=== PATIENT | female | born 1950 | race Caucasian/White ===

== ENCOUNTER 2018-12-03 11:47 | Outpatient (CLI) | payer MEDICARE, BC ==
--- NOTE | 2018-12-03 13:25 | MMO ---
Bilateral MAMMO Bilat Screen [facility]. CLINICAL HISTORY: Patient is 68 years old and is seen for screening. The patient has no family history of breast cancer. The patient has no personal history of cancer. The patient has a history of left Ultrasound Guided Core Biopsy in July, - benign and left Lumpectomy in 1986 - benign. VIEWS: The views performed were: bilateral craniocaudal with tomosynthesis and bilateral mediolateral oblique with tomosynthesis. FILMS COMPARED: The present examination has been compared to prior imaging studies performed at [facility] on 06/22/2016, 06/28/2016 and 01/23/2017. MAMMOGRAM FINDINGS: There are scattered fibroglandular densities. There is a stable biopsy clip seen in the left breast. There are no suspicious masses, suspicious calcifications, or new areas of architectural distortion. IMPRESSION: THERE IS NO MAMMOGRAPHIC EVIDENCE OF MALIGNANCY. A ROUTINE FOLLOW-UP MAMMOGRAM IN 1 YEAR IS RECOMMENDED. THE RESULTS OF THIS EXAM WERE SENT TO THE PATIENT. ACR BI-RADS Category 2 - Benign finding MAMMOGRAPHY NOTE: 1. A negative mammogram report should not delay a biopsy if a dominant of clinically suspicious mass is present. 2. Approximately 10% to 15% of breast cancers are not detected by mammography. 3. Adenosis and dense breasts may obscure an underlying neoplasm. Reported by: SHANIA BRIONES MD Electonically Signed: [id number]
== END 2018-12-03 11:48 | disposition home or self-care (01) ==
LOC: BICMAMMO 11:47
PROVIDERS: ATTEND Family Medicine
DX: Z12.31 Encounter for screening mammogram for malignant neoplasm of breast (principal)
CPT/HCPCS: 77063; 77067

== ENCOUNTER 2019-01-31 12:36 | Outpatient (CLI) | payer MEDICARE, BC ==
--- NOTE | 2019-01-31 14:05 | MRI ---
MR CERVICAL SPINE WITHOUT CONTRAST INDICATION: Neck pain TECHNIQUE: Multiplanar multisequence MR images were obtained of the cervical spine without contrast. COMPARISON: None FINDINGS: Posterior fossa: Within normal limits. Bone marrow signal intensity: Normal Spinal alignment: Normal. Craniocervical junction: Normal appearing. Prevertebral and perivertebral soft tissues: Visualized soft tissues appear within normal limits. Vertebral levels: C2-C3: There is moderate bilateral facet joint degenerative change. There is no appreciable central c anal or neural foraminal narrowing. C3-4: There is uncovertebral hypertrophy and facet joint degenerative change inducing severe left and moderate right neural foraminal narrowing. C4-5: There is a broad-based disc bulge, uncovertebral hypertrophy and facet joint degenerative hooper ge inducing moderate to severe bilateral neural foraminal narrowing. C5-C6: There is a broad-based disc osteophyte complex with uncovertebral hypertrophy facet joint dege nerative change inducing severe bilateral neural foraminal narrowing. C6-C7:, There is a broad-based disc bulge with uncovertebral hypertrophy. This is greater on the righ t. There is severe right neural foraminal narrowing. C7-T1: No appreciable central canal or neuroforaminal narrowing. IMPRESSION: 1. Severe multilevel spondylosis of the cervical spine. 2. Severe left and moderate right neural foraminal narrowing at C3-4. 3. Moderate to severe bilateral neural foraminal narrowing at C4-5. 4. Severe bilateral neural foraminal narrowing at C5-6. 5. Severe right neural foraminal narrowing at C6-7.
--- NOTE | 2019-01-31 14:56 | MRI ---
MRI THORACIC SPINE WITHOUT CONTRAST: HISTORY: Fine motor skill loss. Chronic back pain. COMPARISON: None. TECHNIQUE: MRI thoracic spine is performed without intravenous gadolinium administration. Multi sequential, mult iplanar imaging is performed. FINDINGS: Appropriate T1 marrow signal intensity of the thoracic vertebrae. Thoracic spine vertebral body heigh t is maintained. There is no fracture. No significant STIR hyperintensity to suggest vertebral body edema or ligamentous injury. Visualized mediastinum is unremarkable. Dependent atelectatic changes of the lung parenchyma. Visual ized solid organs are unremarkable. Conus medullaris terminates at the upper aspect of L1. The thoracic cord has a normal size and signal intensity. No cord malacia. No cord expansion. T4-T5: Minimal central disc bulge. No significant central canal stenosis. T5-T6: Minimal disc bulge without significant central canal stenosis. T6-T7: Central disc protrusion does make contact upon the thecal sac. There does appear to be some ma ss effect and deformity of the thoracic cord. Mild to moderate central canal stenosis. The neural foramina are patent throughout the thoracic spine IMPRESSION: Degenerative changes of the upper thoracic spine as described above. No cord signal abnormality. Transcribed Date/Time: 01/31/2019 3:01 PM
--- NOTE | 2019-01-31 15:01 | MRI ---
MRI LUMBAR SPINE NONCONTRAST: HISTORY: Low back pain. Fine motor skill loss. COMPARISON: 11/22/2015. FINDINGS: Appropriate T1 marrow signal intensity of the lumbar vertebrae. Lumbar spine vertebral body height is maintained. There is no fracture. No significant STIR hyperintensity to suggest vertebral body edema or ligamentous injury. Conus medullaris terminates at the upper aspect of L1. T12-L1:No significant central canal stenosis or significant neural foraminal narrowing. L1-L2:Minimal desiccation with minimal loss of disc space height. Minimal broad-based disc bulge with minimal central canal stenosis. Bilaterally, neural foramina are patent. L2-L3:Adequate disc hydration. No significant central canal stenosis. Bilaterally, neural foramina ar e patent. L3-L4:Adequate disc hydration. No significant posterior disc abnormality. Ligament flavum thickening and facet hypertrophy are mild. Overall there is mild central canal stenosis. Disc material does encroach upon bilateral subarticular zones. There is mass effect without obscuration of either jack sing L4 nerve root. Bilaterally, neural foramina are patent. L4-L5:Adequate disc hydration. Broad-based disc bulge, ligament flavum thickening and facet appears r esult in mild central canal stenosis. There is narrowing of both subarticular zones, right greater than left. There is minimal mass effect upon the traversing left and right L5 nerve roots. No signifi cant obscuration. Mild bilateral neural foraminal narrowing. L5-S1:Adequate disc hydration. No significant central canal stenosis or significant neural foraminal narrowing. IMPRESSION: Degenerative changes lumbar spine as detailed above. Transcribed Date/Time: 01/31/2019 3:04 PM
--- NOTE | 2019-01-31 15:50 | RAD ---
LUMBAR SPINE RADIOGRAPHS FOUR VIEWS: 01/31/19 PROVIDED CLINICAL HISTORY: Low back pain. FINDINGS: Five nonribbearing lumbar type vertebral bodies are present. Lumbar alignment appears normal. There i s no evidence for abnormal translational motion with flexion and extension. Vertebral body heights a ppear preserved. Pedicles appear intact. Cholecystectomy clips are seen in the right upper quadrant. IMPRESSION: Unremarkable lumbar spine radiographs. POS: [facility]
--- NOTE | 2019-01-31 15:52 | RAD ---
CERVICAL SPINE RADIOGRAPHS SIX VIEWS: 01/31/19 PROVIDED CLINICAL HISTORY: Neck pain. FINDINGS: Cervical alignment appears normal. Vertebral body heights appear preserved. Disc space narrowing and end plate degenerative change at C5-6 and C6-7. Vertebral body heights are preserved. No prevertebral soft tissue swelling apparent. No evidence for abnormal translational motion with flexion and extens ion. The visualized lung apices appear clear. IMPRESSION: Cervical disc degenerative change. POS: [facility]
== END 2019-01-31 12:37 | disposition home or self-care (01) ==
LOC: TBSIIMAG 12:36
PROVIDERS: ATTEND Physician Assistant Surgical
DX: M54.2 Cervicalgia (principal); M54.5 Low back pain; Z78.9 Other specified health status; M50.322 Other cervical disc degeneration at C5-C6 level; M47.814 Spondylosis without myelopathy or radiculopathy, thoracic region; M47.816 Spondylosis without myelopathy or radiculopathy, lumbar region; M47.812 Spondylosis without myelopathy or radiculopathy, cervical region; M48.02 Spinal stenosis, cervical region
CPT/HCPCS: 72050; 72120; 72141; 72146; 72148

== ENCOUNTER 2019-06-13 10:19 | Outpatient (CLI) | payer MEDICARE, BC ==
--- NOTE | 2019-06-13 12:25 | BD ---
BONE DENSITOMETRY USING DEXA: HISTORY: Postmenopausal screening for osteoporosis. Asymptomatic menopausal state. FINDINGS: Lumbar Spine: BMD (g/cm2) L1 0.733 T-Score: -2.3 Z-Score: -0.6 L2 0.892 T-Score: -1.2 Z-Score: 0.7 L3 0.858 T-Score: -2.1 Z-Score: 0.0 L4 0.767 T-Score: -2.7 Z-Score: -0.6 L1-L4 0.814 T-Score: -2.1 Z-Score: -0.1 Femoral Neck: 0.639 T-Score: -1.9 Z-Score: -0.2 Total Femur: 0.697 T-Score: -2.0 Z-Score: -0.6 The 10-year fracture risk for a major osteoporotic fracture is 14% and for a hip fracture is 2.3%. Impression: Osteopenia. POS: [facility]
== END 2019-06-13 10:20 | disposition home or self-care (01) ==
LOC: BICMAMMO 10:19
PROVIDERS: ATTEND Family Medicine
DX: Z13.820 Encounter for screening for osteoporosis (principal); Z78.0 Asymptomatic menopausal state; Z79.52 Long term (current) use of systemic steroids; M85.89 Other specified disorders of bone density and structure, multiple sites
CPT/HCPCS: 77080

== ENCOUNTER 2020-01-21 14:32 | Outpatient (CLI) | payer MEDICARE, BC ==
[~2020-01-21 14:32] MED LIST: Magnevist 469MG/ML 20 ML VIAL ONE
--- NOTE | 2020-01-21 16:34 | MRI ---
MRI brain without and with gadolinium contrast HISTORY: Headaches. Tinnitus. COMPARISON: 08/17/2011. FINDINGS: There is no evidence of acute intracranial hemorrhage or infarct. Mild chronic ischemic sma ll vessel disease within the periventricular white matter and christiano has progressed slightly. There is no mass effect or shift of midline structures. No abnormal areas of contrast enhancement. Prominent mucosal thickening evident at the ethmoid air cells bilaterally. IMPRESSION : Slight progression of chronic ischemic small vessel disease. No acute intracranial abnormalities are demonstrated. Bilateral mastoid air cell mucosal thickening. No aggressive process is apparent..
== END 2020-01-21 14:33 | disposition home or self-care (01) ==
LOC: BICMRI 14:32
PROVIDERS: ATTEND Family Medicine
DX: R51.9 Headache, unspecified (principal); I67.82 Cerebral ischemia; H74.8X3 Other specified disorders of middle ear and mastoid, bilateral
CPT/HCPCS: 70553; 82565; A9579

== ENCOUNTER 2020-02-06 08:00 | Outpatient (CLI) | payer MEDICARE, BC ==
--- NOTE | 2020-02-06 11:58 | CT ---
CTA NECK WITH CONTRAST CTA HEAD WITH CONTRAST: Date: 02/06/2020 Axial tomograms obtained through head and neck following angio protocol with multiplanar reconstructi on and 3D postprocessing. INDICATION: Carotid bruit. Headache. There are no comparison studies. No comparison Doppler exam available. FINDINGS: CTA NECK: Minimal atherosclerotic change at the aortic arch. No stenosis at the origin of the arch vessels. Both common carotid arteries are patent and symmetric with no significant atherosclerotic change. Both bulbs are patent. There is no significant atherosclerotic change at either bulb. The extracrania l internal carotid arteries are patent and symmetric with no stenosis. Vertebral arteries are patent and symmetric. No atherosclerotic disease or stenosis in either vertebr a. SOFT TISSUES: There is a 1.2 cm nodule in the inferior left lobe of thyroid which appears heterogeneous. Recommend a dedicated thyroid ultrasound. Apices are clear. No evidence of cervical mass or adenopathy. Mild degenerative changes in the cervical spine. Paranasal sinuses appear clear. IMPRESSION: Unremarkable CTA neck. CTA HEAD: The intracranial internal carotid arteries are patent and symmetric. The cavernous ICAs are patent an d symmetric with no significant atherosclerotic disease. Anterior cerebral arteries are patent and sy mmetric. Middle cerebral arteries appear patent and symmetric. Basilar artery is patent. Posterior ce rebral arteries are patent and symmetric. No evidence of aneurysm identified. No evidence of proximal stenosis. Review of the dural sinuses reveals narrowing of the right transverse sinus. The dural venous sinuses are otherwise patent. IMPRESSION: 1. Unremarkable CTA head. 2. Evidence of stenosis and/or luminal narrowing of the right transverse sinus. Dural venous sinuses otherwise appear patent.
[2020-02-06] MEDS ORDERED: Iopamidol-370 76% 500 ML 1 ML ONE (13:57)
== END 2020-02-06 08:01 | disposition home or self-care (01) ==
LOC: BICCT 08:00
PROVIDERS: ATTEND Psychiatry & Neurology Neurology
DX: G25.0 Essential tremor (principal); J34.89 Other specified disorders of nose and nasal sinuses
CPT/HCPCS: 70496; 70498; Q9967

== ENCOUNTER 2020-05-05 15:45 | Outpatient (CLI) | payer MEDICARE, BC ==
--- NOTE | 2020-05-05 16:12 | RAD ---
Chest 2 views HISTORY: Chest pain. FINDINGS: Cardiac silhouette and pulmonary vasculature are unremarkable. Mediastinum is midline. Lungs are slightly hyperinflated with flattening of each hemidiaphragm. No confluent airspace consoli dation, pneumothorax, or pleural fluid. Metallic clips overlie the anterior upper abdomen on the lateral view, likely related to prior cholec ystectomy. IMPRESSION : Mild pulmonary hyperinflation. Correlate for COPD. No acute abnormalities are demonstrated.
== END 2020-05-05 15:46 | disposition home or self-care (01) ==
LOC: BICRAD 15:45
PROVIDERS: ATTEND Family Medicine
DX: R07.9 Chest pain, unspecified (principal); J98.4 Other disorders of lung
CPT/HCPCS: 71046; 80053; 82550; 82553; 83880; 84484; 85025; 85379

== ENCOUNTER 2020-06-14 12:41 | Outpatient (CLI) | payer MEDICARE, BC | END 2020-06-14 12:42 | disposition home or self-care (01) | LOC: BICRAD 12:41 | PROVIDERS: ATTEND Internal Medicine Pulmonary Disease | DX: R06.00 Dyspnea, unspecified (principal) | CPT/HCPCS: 71046 ==

== ENCOUNTER 2022-11-08 12:43 | Outpatient (CLI) | payer MEDICARE, BC | END 2022-11-08 12:44 | disposition home or self-care (01) | LOC: BICMAMMO 12:43 | PROVIDERS: ATTEND Family Medicine | DX: Z12.31 Encounter for screening mammogram for malignant neoplasm of breast (principal); M81.0 Age-related osteoporosis without current pathological fracture; M85.89 Other specified disorders of bone density and structure, multiple sites; M85.852 Other specified disorders of bone density and structure, left thigh; Z91.89 Other specified personal risk factors, not elsewhere classified | CPT/HCPCS: 77063; 77067; 77080 ==

== ENCOUNTER 2022-12-14 10:30 | Outpatient (CLI) | payer MEDICARE, BC | END 2022-12-14 10:31 | disposition home or self-care (01) | LOC: SCSMRI 10:30 | PROVIDERS: ATTEND Family Medicine | DX: M54.50 Low back pain, unspecified (principal); M51.36 Other intervertebral disc degeneration, lumbar region; M48.061 Spinal stenosis, lumbar region without neurogenic claudication | CPT/HCPCS: 72148 ==

== ENCOUNTER 2023-08-09 15:09 | Observation (INO) | payer MEDICARE, BC ==
[2023-08-09] MEDS ORDERED: Rocuronium Bromide 10 MG/ML (10ML VIAL) ONE (16:10)
[2023-08-09] MEDS ORDERED: Lidocaine 1% PF 5 ML VIAL ONE (16:10)
[2023-08-09] MEDS ORDERED: Dexamethasone 4 mg/ml Vial ONE (16:10)
[2023-08-09] MEDS ORDERED: Ondansetron PF 4 MG/2 ML Vial ONE (16:10)
[2023-08-09] MEDS ORDERED: PROPOFOL 40 ML ONE (16:11)
[2023-08-09] MEDS ORDERED: fentaNYL PF 100 MCG/2 ML SYRINGE ONE (16:11)
[2023-08-09] MEDS ORDERED: SUGAMMADEX SODIUM 200 MG/2 ML VIAL ONE (16:11)
[2023-08-09] MEDS ORDERED: Milk Of Magnesia 30 ML UDCUP PO PRN (16:29)
[2023-08-09] MEDS ORDERED: Acetaminophen 325 MG TAB PO PRN (16:29)
[2023-08-09] MEDS ORDERED: Promethazine 25 MG TAB PO PRN (16:29)
[2023-08-09] MEDS ORDERED: Vancomycin 1 GM VIAL ONE (17:22)
[2023-08-09] MEDS ORDERED: CEFAZOLIN 2 GM VIAL ONE (17:35)
[2023-08-09] MEDS ORDERED: Sodium Chloride 0.9% 100 ML ONE (17:35)
[2023-08-09] MEDS ORDERED: Scopolamine 1 mg/72 hour Patch TD PRN (18:16)
[2023-08-09] MEDS ORDERED: Ketorolac Tromethamine 30 MG (1 mL) VIAL ONE (18:18)
[2023-08-09] MEDS ORDERED: fentaNYL 50 mcg/mL 1 mL Vial ONE ×2 (18:19→19:21)
[2023-08-09] MEDS ORDERED: HYDROmorphone 0.5 MG/0.5 ML SYRINGE ONE (18:33)
[2023-08-09] MEDS: CEFAZOLIN 2 GM in Sodium Chloride 0.9% 100 ML IVPB SCH (19:55)
[2023-08-09 20:04] VITALS: BMI 28.0
[2023-08-09] MEDS: Methocarbamol 500 MG TAB PO PRN (20:04)
[2023-08-09] MEDS: HYDROcodone/Acetaminophen 5/325 mg Tablet PO PRN (21:40)
[2023-08-09] MEDS: Morphine 2 MG/ML VIAL SLOW IVP PRN (23:46)
[2023-08-10] MEDS: Acetaminophen/Codeine 30-300mg Tablet PO PRN (02:26)
[2023-08-10] MEDS: Ondansetron PF 4 MG/2 ML Vial IVP PRN (03:30)
[2023-08-10 07:53] VITALS: BP 145/74; TEMP 98.4
== END 2023-08-10 09:50 | disposition home or self-care (01) ==
LOC: ERS 15:09 → SDC 16:14 → SURG A 19:48
PROVIDERS: ADMIT Specialist; ATTEND Specialist
PROC: 0JB70ZZ Excision of Back Subcutaneous Tissue and Fascia, Open Approach (ICD-10-PCS; principal; 2023-08-09)
PROC: 0JQ70ZZ Repair Back Subcutaneous Tissue and Fascia, Open Approach (ICD-10-PCS; 2023-08-09)
DX: T81.31XA Disruption of external operation (surgical) wound, not elsewhere classified, initial encounter (principal); M32.8 Other forms of systemic lupus erythematosus; I10 Essential (primary) hypertension; E78.5 Hyperlipidemia, unspecified; E03.9 Hypothyroidism, unspecified; F41.8 Other specified anxiety disorders
CPT/HCPCS: 11043; 13160; 99284; J1100; J1170; J1885; J2272; J2405 ×2; J2704; J3010; J3370; J3490 ×2

== ENCOUNTER 2024-01-07 12:07 | Outpatient (CLI) | payer MEDICARE, BC | END 2024-01-07 12:08 | disposition home or self-care (01) | LOC: RAD 12:07 | PROVIDERS: ATTEND Family Medicine | DX: M79.672 Pain in left foot (principal) ==